=== PATIENT | male | born 1980 | race Caucasian/White ===

== ENCOUNTER 2021-09-22 05:18 | Emergency (ER) | payer OTHER ==
[~2021-09-22 05:18] MED LIST: VIBRAMYCIN100 MG PO
[2021-09-22 06:38] LABS: RED BLOOD COUNT 5.29 M/UL (4.20-5.50); WHITE BLOOD COUNT 10.7 K/UL (4.5-11.0)
[2021-09-22 06:40] LABS: BUN/CREATININE RATIO 10 (0-10)
[2021-09-22] MEDS ORDERED: CEPHALEXIN500 MG PO (07:06)
[2021-09-22] MEDS ORDERED: BACTRIM DS TAB1 EACH PO (07:06)
== END 2021-09-22 07:28 | disposition home or self-care (01) ==
LOC: ER1 05:18
PROVIDERS: Emergency Medicine
DX: L98.499 Non-pressure chronic ulcer of skin of other sites with unspecified severity (principal); F17.200 Nicotine dependence, unspecified, uncomplicated; Z88.0 Allergy status to penicillin
CPT/HCPCS: 71045; 73110; 73130; 80053; 83605; 85025; 85652; 86140; 87040; 96374; 99283; J0696

== ENCOUNTER 2022-01-10 02:08 | Emergency (ER) | payer OTHER ==
[~2022-01-10 02:08] MED LIST changes: +BACTRIM DS TAB1 EACH PO; +CEPHALEXIN500 MG PO
[2022-01-10 03:08] LABS: RED BLOOD COUNT 5.03 M/UL (4.20-5.50); WHITE BLOOD COUNT 8.2 K/UL (4.5-11.0)
[2022-01-10 03:29] LABS: BUN/CREATININE RATIO 20 (0-10)
[2022-01-10] MEDS ORDERED: CEPHALEXIN500 MG PO (05:33)
[2022-01-10] MEDS ORDERED: BACTRIM DS TAB1 EACH PO (05:33)
== END 2022-01-10 05:39 | disposition home or self-care (01) ==
LOC: ER1 02:08
PROVIDERS: Family Medicine
DX: L03.114 Cellulitis of left upper limb (principal); L03.113 Cellulitis of right upper limb; F15.10 Other stimulant abuse, uncomplicated
CPT/HCPCS: 80053; 85025; 87040; 99283